=== PATIENT | male | born 1980 | race Caucasian/White ===

== ENCOUNTER 2021-03-20 21:57 | Inpatient (IN) | payer MEDICAID ==
[~2021-03-20] VITALS: Ht 180.3 cm; Wt 125.5 kg
[2021-03-20 23:23] LABS: COVID AG,FIA SOURCE NASOPHARYNGEAL
[2021-03-20 23:23] LABS: BASOPHILS % (AUTO) 0.7 % (0.0-2.0); EOSINOPHILS % (AUTO) 0.1 % (1.0-6.0); HEMATOCRIT 46.6 % (41-53); HEMOGLOBIN 15.7 g/dL (13.5-17.5); LYMPHOCYTES # (AUTO) 1.5 K/uL (1.0-4.8); MEAN CORPUSCULAR HEMOGLOBIN 30.1 pg (26.0-34.0); MEAN CORPUSCULAR HGB CONC 33.7 G/dL (31.0-37.0); MEAN CORPUSCULAR VOLUME 89 fL (80-100); MONOCYTES # (AUTO) 0.9 K/uL (0.1-1.0); MONOCYTES % (AUTO) 6.7 % (2.0-9.0); NEUTROPHILS # (AUTO) 11.4 K/uL (1.8-7.7); NEUTROPHILS % (AUTO) 81.5 % (40.0-70.0); PLATELET COUNT (AUTO) 289 K/uL (150-450); RED BLOOD CELL COUNT(AUTO) 5.22 MIL/uL (4.50-5.90); RED CELL DISTRIBUTION WIDTH 13.5 % (11.5-14.5)
[2021-03-20] MEDS ORDERED: HALOPERIDOL 5 MG TABLET PO PRN (23:30)
[2021-03-20] MEDS ORDERED: ZOLPIDEM TARTRATE 10 MG TABLET PO PRN (23:30)
[2021-03-20 23:38] LABS: CALCIUM, TOTAL 9.4 mg/dL (8.8-10.5); CREATININE 1.69 mg/dL (0.60-1.30); POTASSIUM 3.4 mmol/L (3.5-5.1)
[2021-03-20 23:44] LABS: ALBUMIN 4.1 g/dL (3.4-5.0); BILIRUBIN,TOTAL 0.5 mg/dL (0.1-1.0); TOTAL PROTEIN, SERUM 8.4 g/dL (6.4-8.2)
[2021-03-20 23:56] LABS: APPEARANCE,URINE CLEAR (CLEAR); BILIRUBIN,URINE NEGATIVE (NEGATIVE); GLUCOSE, URINE (UA) NEGATIVE (NEGATIVE); KETONES,URINE TRACE mg/dL (NEGATIVE); LEUKOCYTE ESTERASE ,URINE NEGATIVE (NEGATIVE); NITRATE,URINE NEGATIVE (NEGATIVE); OCCULT BLOOD,URINE NEGATIVE (NEGATIVE); PROTEIN,URINE POS 1+ (NEGATIVE)
[2021-03-21 00:02] LABS: AMPHET/METH SCREEN,URINE NEGATIVE (NEGATIVE); BARBITURATE SCREEN, URINE NEGATIVE (NEGATIVE); BENZODIAZEPINES SCREEN,URINE NEGATIVE (NEGATIVE); CANNABINOID SCREEN,URINE POSITIVE (NEGATIVE); COCAINE SCREEN,URINE NEGATIVE (NEGATIVE); METHADONE SCREEN, URINE NEGATIVE (NEGATIVE); OPIATE SCREEN,URINE NEGATIVE (NEGATIVE)
[2021-03-21 00:08] LABS: PHENCYCLIDINE SCREEN,URINE NEGATIVE (NEGATIVE)
[2021-03-21] MEDS ORDERED: POTASSIUM CHLORIDE 20 MEQ ER TABLET PO ONE (00:15)
[2021-03-21] MEDS ORDERED: CloNIDine HCL 0.1 MG TABLET PO ONE (00:30)
[2021-03-21] MEDS: LORazepam 2 MG TABLET PO PRN (01:16)
[2021-03-21 02:06] LABS: CHOL/HDL RATIO 5.9 (4.2-7.3)
[2021-03-21] MEDS ORDERED: GuaiFENesin/D-METHORPHAN [SUGAR-FREE] 200-20MG/10 ML SYRUP UDCUP PO PRN (06:45)
[2021-03-21] MEDS ORDERED: ACETAMINOPHEN 325 MG TABLET PO PRN (06:45)
[2021-03-21] MEDS ORDERED: IBUPROFEN 400 MG TABLET PO PRN (06:45)
[2021-03-21] MEDS ORDERED: ALBUTEROL SULFATE HFA 90 MCG/PUFF 8 GM INHALER IH PRN (06:45)
[2021-03-21] MEDS ORDERED: NICOTINE 14 MG/24 HOUR PATCH TD PRN (06:45)
[2021-03-21] MEDS ORDERED: MAGNESIUM HYDROXIDE SUSPENSION 30 ML UDCUP PO PRN (06:45)
[2021-03-21] MEDS ORDERED: DOCUSATE SODIUM 100 MG CAPSULE PO PRN (06:45)
[2021-03-21] MEDS ORDERED: ONDANSETRON HCL 4 MG TABLET PO PRN (06:45)
[2021-03-21] MEDS ORDERED: MAG HYDROX/AL HYDROX/SIMETH ES 30 ML SUSPENSION UDCUP PO PRN (06:45)
[2021-03-21] MEDS ORDERED: LOPERAMIDE HCL 2 MG CAPSULE PO PRN (06:45)
[2021-03-21] MEDS ORDERED: PETROLATUM,WHITE 28 GM JELLY TP PRN (06:45)
[2021-03-21 10:00] VITALS: BP 154/112
[2021-03-21 13:08] VITALS: BP 116/67
[2021-03-21 16:25] VITALS: BP 124/69
[2021-03-22 01:05] VITALS: BP 119/73
[2021-03-22] MEDS ORDERED: INFLUENZA VIRUS VACCINE QVS 2021-22 (6MO+)/PF 60 MCG/0.5 ML SYRINGE IM. ONE (07:15)
[2021-03-22 08:15] VITALS: BP 161/97
[2021-03-22] MEDS: AmLODIPine BESYLATE 5 MG TABLET PO SCH (08:52)
[2021-03-22 16:16] VITALS: BP 140/84
[2021-03-22] MEDS: QUEtiapine FUMARATE 25 MG TABLET PO SCH (20:09)
[2021-03-23 05:12] VITALS: BP 126/74
[2021-03-23 08:01] LABS: ANION GAP 7 mmol/L (8-16); CALCIUM, TOTAL 9.1 mg/dL (8.8-10.5); CARBON DIOXIDE 29 mmol/L (22-29); CHLORIDE 106 mmol/L (98-107); CREATININE 1.26 mg/dL (0.60-1.30); GLOMERULAR FILTR. RATE CALC > 60 mL/min (>60); GLUCOSE,RANDOM 91 mg/dL (70-110); POTASSIUM 3.6 mmol/L (3.5-5.1); SODIUM SERUM 142 mmol/L (136-145); UREA NITROGEN, BLOOD 14 mg/dL (7-18)
[2021-03-23] MEDS: AmLODIPine BESYLATE 5 MG TABLET PO SCH (08:07)
[2021-03-23] MEDS: LORazepam 2 MG TABLET PO PRN (12:25)
[2021-03-23] MEDS: CloNIDine HCL 0.1 MG TABLET PO PRN (16:11)
[2021-03-23 16:41] VITALS: BP 172/94
[2021-03-23 17:30] VITALS: BP 150/89
[2021-03-23] MEDS: QUEtiapine FUMARATE 25 MG TABLET PO SCH (20:04)
[2021-03-24 05:22] VITALS: BP 160/100
[2021-03-24] MEDS: LORazepam 2 MG TABLET PO PRN ×3 (05:36→16:47)
[2021-03-24 08:15] VITALS: BP 124/82
[2021-03-24] MEDS: AmLODIPine BESYLATE 5 MG TABLET PO SCH (08:29)
[2021-03-24 16:32] VITALS: BP 134/93
[2021-03-24] MEDS: QUEtiapine FUMARATE 25 MG TABLET PO SCH (20:13)
[2021-03-25 00:30] VITALS: BP 146/86
[2021-03-25] MEDS: LORazepam 2 MG TABLET PO PRN ×4 (06:18→20:42)
[2021-03-25] MEDS: AmLODIPine BESYLATE 5 MG TABLET PO SCH (08:54)
[2021-03-25 09:00] VITALS: BP 137/115
[2021-03-25] MEDS ORDERED: AmLODIPine BESYLATE 2.5 MG TABLET PO ONE (09:45)
[2021-03-25 13:00] VITALS: BP 139/96
[2021-03-25 17:26] VITALS: BP 165/114
[2021-03-25] MEDS: METOPROLOL TARTRATE 25 MG TABLET PO SCH (17:36)
[2021-03-25] MEDS: CloNIDine HCL 0.1 MG TABLET PO PRN ×2 (18:36→22:05)
[2021-03-25] MEDS: QUEtiapine FUMARATE 25 MG TABLET PO SCH (20:42)
[2021-03-25 22:04] VITALS: BP 144/86
[2021-03-26 01:14] VITALS: BP 136/93
[2021-03-26] MEDS: METOPROLOL TARTRATE 25 MG TABLET PO SCH ×2 (08:12→16:25)
[2021-03-26 08:19] LABS: COVID AG,FIA SOURCE NASOPHARYNGEAL
[2021-03-26 08:55] VITALS: BP 167/100
[2021-03-26] MEDS ORDERED: AmLODIPine BESYLATE 5 MG TABLET PO SCH (09:00)
[2021-03-26] MEDS: LORazepam 2 MG TABLET PO PRN ×2 (09:14→18:20)
[2021-03-26 11:41] VITALS: BP 150/98
[2021-03-26 16:23] VITALS: BP 154/104
[2021-03-26 18:30] VITALS: BP 162/79
[2021-03-26] MEDS ORDERED: QUEtiapine FUMARATE 100 MG TABLET PO SCH (21:00)
[2021-03-27 00:27] VITALS: BP 132/60
[2021-03-27] MEDS: METOPROLOL TARTRATE 25 MG TABLET PO SCH ×2 (08:08→16:46)
[2021-03-27 08:44] VITALS: BP 175/95
[2021-03-27] MEDS ORDERED: AmLODIPine BESYLATE 10 MG TABLET PO SCH (09:00)
[2021-03-27 16:34] VITALS: BP 163/100
[2021-03-27 19:02] VITALS: BP 161/96
== END 2021-03-27 20:00 | disposition home or self-care (01) | DRG 750 ==
LOC: EMS 22:00 → B2S 03-21 02:30
PROVIDERS: ADMIT Psychiatry & Neurology Child & Adolescent Psychiatry; ATTEND Psychiatry & Neurology Child & Adolescent Psychiatry
DX: F20.0 Paranoid schizophrenia (principal); G70.00 Myasthenia gravis without (acute) exacerbation; N17.9 Acute kidney failure, unspecified; R45.851 Suicidal ideations; F41.9 Anxiety disorder, unspecified; I10 Essential (primary) hypertension; Y90.0 Blood alcohol level of less than 20 mg/100 ml; E87.6 Hypokalemia; F12.10 Cannabis abuse, uncomplicated; F32.A Depression, unspecified; Z59.00 Homelessness unspecified; Z79.899 Other long term (current) drug therapy; Z20.822 Contact with and (suspected) exposure to COVID-19
CPT/HCPCS: 71045; 80048; 80053; 80061; 81003; 85025; 90686; 99285; G0480; 36415-L1; 36415-TC; G0008

== ENCOUNTER 2021-03-27 10:22 | Emergency (ER) | payer MEDICAID ==
[~2021-03-27] VITALS: Ht 180.3 cm; Wt 121.8 kg
[2021-03-27 11:33] LABS: BASOPHILS % (AUTO) 0.7 % (0.0-2.0); EOSINOPHILS % (AUTO) 2.4 % (1.0-6.0); HEMATOCRIT 45.1 % (41-53); HEMOGLOBIN 15.1 g/dL (13.5-17.5); LYMPHOCYTES # (AUTO) 2.9 K/uL (1.0-4.8); LYMPHOCYTES % (AUTO) 25.2 % (22.0-44.0); MEAN CORPUSCULAR HEMOGLOBIN 29.9 pg (26.0-34.0); MEAN CORPUSCULAR HGB CONC 33.6 G/dL (31.0-37.0); MEAN CORPUSCULAR VOLUME 89 fL (80-100); MONOCYTES % (AUTO) 8.4 % (2.0-9.0); NEUTROPHILS # (AUTO) 7.3 K/uL (1.8-7.7); NEUTROPHILS % (AUTO) 63.3 % (40.0-70.0); PLATELET COUNT (AUTO) 254 K/uL (150-450); RED BLOOD CELL COUNT(AUTO) 5.07 MIL/uL (4.50-5.90); RED CELL DISTRIBUTION WIDTH 13.7 % (11.5-14.5)
[2021-03-27 11:46] LABS: ANION GAP 6 mmol/L (8-16); CALCIUM, TOTAL 9.4 mg/dL (8.8-10.5); CARBON DIOXIDE 29 mmol/L (22-29); CHLORIDE 105 mmol/L (98-107); CREATININE 1.21 mg/dL (0.60-1.30); GLOMERULAR FILTR. RATE CALC > 60 mL/min (>60); GLUCOSE,RANDOM 89 mg/dL (70-110); POTASSIUM 4.2 mmol/L (3.5-5.1); SODIUM SERUM 140 mmol/L (136-145); UREA NITROGEN, BLOOD 13 mg/dL (7-18)
[2021-03-27 11:51] LABS: ALANINE AMINOTRANSFERASE 74 U/L (12-78); ALBUMIN 3.6 g/dL (3.4-5.0); ALKALINE PHOSPHATASE 101 U/L (46-116); ASPARTATE AMINOTRANSFERASE 30 U/L (15-37); BILIRUBIN,TOTAL 0.3 mg/dL (0.1-1.0); TOTAL PROTEIN, SERUM 7.5 g/dL (6.4-8.2)
[2021-03-27 13:31] VITALS: BP 158/99
== END 2021-03-27 15:07 | disposition home or self-care (01) ==
LOC: EMS 10:22
DX: I44.0 Atrioventricular block, first degree (principal); I10 Essential (primary) hypertension
CPT/HCPCS: 80053; 84484; 85025; 93005; 99284